=== PATIENT | male | born 1965 | race Caucasian/White ===

== ENCOUNTER 2017-01-01 22:39 | Emergency (ER) | payer MEDICARE ==
[2017-01-01] MEDS ORDERED: SODIUM BICARBONATE 8.4% INJ 50 MEQ/50 ML SYR IV ONE (22:40)
[2017-01-01] MEDS ORDERED: EPINEPHrine HCL (1:10,000) 1 MG/10 ML SYRINGE IV ONE (22:40)
[2017-01-01] MEDS ORDERED: CALCIUM CHLORIDE 10% SOLN 1 GRAM/10 ML SYR IV ONE (22:40)
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
== END 2017-01-02 02:34 | disposition expired ==
LOC: NEPI 22:39 → EDBD 22:39 → NEPI 01-02 02:34
DX: I46.9 Cardiac arrest, cause unspecified (principal); V03.10XA Pedestrian on foot injured in collision with car, pick-up truck or van in traffic accident, initial encounter
CPT/HCPCS: 92950; 99285; G0390; 99291; J0171